=== PATIENT | male | born 1960 | race Caucasian/White ===

== ENCOUNTER 2020-09-16 07:10 | Outpatient (CLI) | payer BC, SELFPAY ==
--- NOTE | 2020-09-16 07:00 | XR_ITS ---
WS: [id number] Exam: XR KUB [id number] Date/Time of Exam: 09/16/2020 7:17 AM Reason For Exam: stone Comparison 05/25/2017. No bowel obstruction or free air. Visualized organ margins are intact. Bony structures are unremarkab le. There are numerous small calcifications superimposing the bilateral renal silhouette suggesting m ultiple renal calculi. These range in size from the 3 to 7 mm. XR/XR KUB [id number] IMPRESSION: 1. No acute abdominal finding. 2. Numerous small calcifications superimposing the bilateral renal silhouettes most likely representing multiple renal calculi. Similar findings on previous e xam.
== END 2020-09-16 07:11 | disposition home or self-care (01) ==
LOC: RAD 07:12
PROVIDERS: PCP Family Medicine; Visit Provider Urology
DX: N20.1 Calculus of ureter (principal)
CPT/HCPCS: 74018; 81003; 82365; 88300